=== PATIENT | female | born 1995 | race Caucasian/White ===

== ENCOUNTER 2017-03-29 11:26 | Day surgery (SDC) | payer OTHER ==
[2017-03-27 12:06] LABS: HEMATOCRIT 38.9 % (36.0-48.0); HEMOGLOBIN 12.8 g/dL (12.0-16.0)
[2017-03-27 12:12] LABS: PARTIAL THROMBO TIME 28.8 SEC (22.5-37.2)
--- NOTE | ~2017-03-29 | OP ---
Record Of Operation [facility] [address] [place]. [address] NAME: JESSICA SUAREZ : [birth year] STATUS : [facility]#: [id number] AGE: 21 ADM/REG DATE : 03/29/17 MR#: [id number] REPORT SERV DATE: 03/29/17 DICTATED BY: RINA MARTIN DATE: 03/29/17 REPORT STATUS : Draft TRANSCRIBED BY: MODL DATE: 03/29/17 DATE OF PROCEDURE: 03/29/2017 PREOPERATIVE DIAGNOSIS: Chronic tonsillitis with tonsilliths. POSTOPERATIVE DIAGNOSIS: Chronic tonsillitis with tonsilliths. PROCEDURE PERFORMED: Tonsillectomy. SURGEON: Rina Martin M.D. BLASTING GANG MINER: None. ANESTHESIA: General. COMPLICATIONS: None. CONDITION: Stable to recovery. INDICATIONS: A 21-year-old female with chronic tonsillitis and recurrent tonsilliths. PROCEDURE IN DETAIL: The patient was identified in preoperative holding, taken back to the operating room, and placed supine on the operating table. General anesthesia was established. She was prepped and draped in a standard fashion for a tonsillectomy. A time- out was called and the patient and procedure were confirmed. Initially, a Myra-Lele mouth gag was introduced to the oral cavity to expose the oropharynx. The tonsils were 2+ and cryptic with multiple tonsil stones. The anterior tonsillar pillar was infiltrated submucosally with 1% lidocaine with 1:100,000 epinephrine, 1 mL on either side. Using 2.5x loupe magnification and headlight illumination, the operation commenced. A needle tip cautery set on 12 coagulation was used to excise the right tonsil from the pharyngeal constrictor muscle using a curved tenaculum to retract the tonsil medially. Once excised, bismuth subgallate was placed in the right fossa. There was minimal bleeding. The left tonsil was excised in a similar fashion by establishing a plane between the tonsil and the superior constrictor muscle and cauterizing the blood vessels as the tonsil was removed. Bismuth subgallate was placed in the left fossa as well. There was less than 5 mL blood loss during the entire case. The oropharynx was irrigated with saline. The Myra-Lele mouth gag was relaxed, full oropharynx inspected, and there was no further bleeding. The Myra-Lele mouth gag was then removed and the patient was taken to Recovery in stable condition. There were no complications. Her tonsils had copious tonsilliths on both sides. PH/MODL Rina Martin M.D. Record Of [address] [place] [address] NAME: JESSICA SUAREZ : [birth year] STATUS : [facility] PAT#: [id number] AGE: 21 ADM/REG DATE : 03/29/17 MR#: [id number] REPORT SERV DATE: 03/29/17 DICTATED BY: RINA MARTIN DATE: 03/29/17 REPORT STATUS : Draft TRANSCRIBED BY: SAMIRA DATE: 03/29/17 / [id number] CC: Briana Moffett M.D.
[~2017-03-29 11:26] MED LIST: ALLEGRA180 PO; APRI PO; MAXAIR INH; PEP20 PO
== END 2017-03-29 18:55 | disposition home or self-care (01) ==
LOC: SDC 11:26
PROVIDERS: Specialist
PROC: 0CBPXZZ Excision of Tonsils, External Approach (ICD-10-PCS; principal; 2017-03-29 12:45)
DX: J35.01 Chronic tonsillitis (principal); J45.909 Unspecified asthma, uncomplicated
CPT/HCPCS: 84703; 85014; 85018; 85730; 88304; A9270-GY; J1170; J2250; J2405; J2550; J3010